=== PATIENT | male | born 1965 | race Two or more races ===

== ENCOUNTER → 2017-01-05 | Outpatient (CLI) | payer OTHER ==
--- NOTE | 2017-01-05 16:15 | FMS ---
Indication low back pain. No history of injury. AP and lateral views of the lumbar spine were obtained as well as a coned view targeted to the lumbosacral junction. There is slight wedging of L1 with mild wedging additionally noted associated with T12. These have a chronic appearance. There are osteophytes seen in the lower thoracic spine as well as L1 and L2 with small osteophytes at L5. An acute finding is not seen. Alignment is well maintained. IMPRESSION: Chronic changes. No acute finding seen
--- NOTE | 2017-01-12 15:57 | RAD ---
Indication right hip pain. No history of injury. An AP view of the pelvis was obtained as well as targeted AP and frog leg views of the right hip. No bony abnormality is seen. There are no significant degenerative changes apparent on plain films MTDD
== END | disposition home or self-care (01) ==
LOC: FMSRAD 15:56
PROVIDERS: ATTEND Nurse Practitioner Occupational Health
DX: M25.551 Pain in right hip (principal); M54.5 Low back pain
CPT/HCPCS: 73502

== ENCOUNTER → 2019-02-07 | Day surgery (SDC) | payer OTHER ==
[~2019-02-07] MED LIST: ATOR40TA59 PO; IV RINGERS,LACTATED 1000ML 1,000 ML IV SCH; LIDOCAINE 1% PF 2 ML VIAL. ID PRN; LISI-130 PO; MELO15TA23 PO; MIDAZOLAM HCL/PF 2 MG/2 ML VIAL. IV PRN; PROPOFOL 20 ML IV ONE; fentaNYL PF VIAL 100 MCG/2 ML VIAL IV PRN
[2019-02-07 09:55] VITALS: BP 132/81
--- NOTE | 2019-02-07 14:25 | CONS ---
DATE OF CONSULTATION: GASTROINTESTINAL CONSULTATION REFERRING PHYSICIAN: Radha Siddiqui. REASON FOR CONSULTATION: Colorectal screening. HISTORY: A 53-year-old male with past medical history significant for hypertension, hyperlipidemia and osteoarthritis, seen for screening colon exam. Bowel habits are regular without diarrhea or constipation. There has been no melena or hematochezia. There is no family history of colon polyps or colon cancer. He is otherwise without additional complaints. PAST MEDICAL HISTORY: Hypertension, hyperlipidemia, osteoarthrosis. ALLERGIES: None. MEDICATIONS: Include atorvastatin 40 mg daily, lisinopril 80 mg daily and meloxicam 15 mg daily. SOCIAL HISTORY: He is a nonsmoker, nondrinker. He has had no previous operations. FAMILY HISTORY: Significant only for diabetes. REVIEW OF SYSTEMS: Per records. PHYSICAL EXAMINATION: GENERAL: Reveals a well-nourished, well-developed male, who is alert, cooperative, in no acute distress. VITAL SIGNS: Temp is 97.3, pulse 65, respirations 20. HEENT: Normocephalic and atraumatic head. Pupils and extraocular muscles are not tested. Sclerae are anicteric. NECK: Supple. LUNGS: Clear. CARDIOVASCULAR: Reveals an S1 and S2 without S3, S4 or appreciable murmur. ABDOMEN: Reveals a soft abdomen, normal bowel sounds without appreciable hepatosplenomegaly. EXTREMITIES: Reveals no cyanosis, clubbing, edema. IMPRESSION: Colorectal screening is warranted at this time. Risks and benefits of the procedure including risk of hemorrhage and perforation during the operation have been discussed with the patient, who is willing to proceed at this time. I would like to thank Radha Siddiqui for allowing us to consult and participate in the patient's care. VALERIANO CHILDRESS MD DR: SANTINO/ayan JOB#: [id number] / [id number] RADHA [facility] Records, Medical
--- NOTE | 2019-02-08 16:06 | PATHOLOGY ---
[facility] Accession Number: [id number] . 01 Material submitted: . sigmoid colon - SIGMOID POLYP . 01 Clinical history: . Screening . 02 Diagnosis: Colon biopsy, sigmoid polyp: - Tubular adenoma. (JPM:markie; 02/08/2019) QMS/02/08/2019 . 02 Comment: There is no high grade dysplasia or evidence of malignancy. (JPM:markie; 02/08/2019) . 02 Electronically signed: . Edward Escobedo MD, Pathologist NPI- [id number] . 01 Gross description: . The specimen is received in formalin, labeled "Connor, Eduoraliaes, sigmoid polyp" and consists of a fragment of grimaldo-brown tissue measuring 0.4 x 0.3 x 0.2 cm which is entirely submitted in A1. (SDY; 02/07/2019) SYU/SYU . 02 Pathologist provided ICD-10: D12.5 . 02 CPT . 250896 Specimen Comment: A courtesy copy of this report has been sent to Specimen Comment: [phone], . Specimen Comment: Report sent to / DR JON Performed at: 01 [facility] [address], [place] [id number] MD Karlo Gardner MD Phone: [phone] Performed at: 02 [facility] [address] [place], [place] [id number] MD Edward Escobedo MD Phone: [phone]
== END ==
LOC: SURG 08:02
PROVIDERS: ATTEND Internal Medicine Gastroenterology
DX: Z12.11 Encounter for screening for malignant neoplasm of colon (principal); D12.5 Benign neoplasm of sigmoid colon; K64.0 First degree hemorrhoids; I10 Essential (primary) hypertension; E78.5 Hyperlipidemia, unspecified; Z87.39 Personal history of other diseases of the musculoskeletal system and connective tissue
CPT/HCPCS: 45385; 88305; J2704; 45380